=== PATIENT | female | born 1945 | race Caucasian/White ===

== ENCOUNTER 2019-05-05 13:06 | Inpatient (IN) ==
[2019-05-05] MEDS ORDERED: DUONEB (A & A) INH ONE (14:04)
[2019-05-05 14:38] LABS: BASO# 0.01 X1000 (0.0-0.2); BASO% 0.1 % (0.0-0.8); EOS# 0.01 X1000 (0.0-0.7); EOS% 0.1 % (0.0-10.0); HEMATOCRIT 36.3 % (37.0-47.0); IMM GRAN# 0.04 X1000 (0.0-0.04); IMM GRAN% 0.3 % (0.0-0.5); LYMPH# 1.79 X1000 (1.2-3.4); LYMPH% 11.8 % (20.5-51.1); MCH 31.3 PG (27-31); MCHC 33.1 g/dL (33-37); MCV 94.8 FL (81-99); MONO# 1.65 X1000 (0.11-0.59); MONO% 10.9 % (1.7-9.3); MPV 10.2 FL (7.4-10.4); NEUT% 76.8 % (42.2-75.2); PLT 187 X1000 (130-400); RBC 3.83 XMIL (4.2-5.4); RDW 13.3 % (11.5-14.5)
--- NOTE | 2019-05-05 14:50 | Diag Imaging Result Doc PS360 ---
EXAM: CT HEAD W/O CONTRAST HISTORY: difficulty swallowing TECHNIQUE: CT head without contrast COMPARISON: None. FINDINGS: No parenchymal hemorrhage. No epidural or subdural hematoma. No subarachnoid hemorrhage. There are chronic microvascular ischemic changes. No mass identified on this noncontrasted exam. No hydrocephalus. No sinus opacification. IMPRESSION: 1.No hemorrhage 2.Chronic microvascular ischemic changes This exam was performed using automated exposure control, adjustment of mA or kV according to patient size, and/or use of iterative reconstruction technique. Electronically signed by Kevin Hudson 05/05/2019 2:47 PM
[2019-05-05 14:56] LABS: AGAP 10; ALBUMIN 3.9 g/dL (3.5-5.0); ALKALINE PHOSPHATASE 65 U/L (32-104); BUN 22 mg/dL (8-22); CALCIUM 9.4 mg/dL (8.8-10.2); CHLORIDE 107 mmol/L (98-107); COSMO 289; CREATININE 0.9 mg/dL (0.5-0.9); ESTIMATED GFR > 60; GLUCOSE 119 mg/dL (70-104); GOT 313 U/L (10-30); GPT 90 U/L (10-36); POTASSIUM 3.9 mmol/L (3.5-5.1); SODIUM 143 mmol/L (136-145); TCO2 27 mmol/L (25-35); TOTAL PROTEIN 6.7 g/dL (6.3-8.3)
--- NOTE | 2019-05-05 14:57 | Diag Imaging Result Doc PS360 ---
EXAM: CHEST-2 VIEWS HISTORY: short of breath TECHNIQUE: Chest two views COMPARISON: 11/21/2015 FINDINGS: The lungs are hyperexpanded. The heart is not enlarged. The vessels are not distended. There are no infiltrates. No pleural effusions. There has been surgery to the lower neck. IMPRESSION: Likely emphysema. Electronically signed by Kevin Hudson 05/05/2019 2:55 PM
[2019-05-05] MEDS ORDERED: ROCEPHIN 1 GM in NS 50 ML IV ONE (15:48)
[2019-05-05] MEDS ORDERED: ZITHROMAX 500 MG/NS 500 MG/250 ML IVPB IV ONE (15:48)
[2019-05-05] MEDS ORDERED: ZOFRAN IV PRN ×2 (16:13→16:15)
[2019-05-05] MEDS ORDERED: TYLENOL PO PRN ×2 (16:13→16:15)
[2019-05-05] MEDS ORDERED: DUONEB (A & A) INH PRN (16:13)
[2019-05-05] MEDS: CLINDAMYCIN 600 MG/D5W 600 MG/50 ML IVPB IV SCH ×2 (16:37→23:08)
[2019-05-05] MEDS: DUONEB (A & A) INH SCH ×2 (20:15→23:55)
[2019-05-05] MEDS: XANAX PO SCH (22:39)
--- NOTE | 2019-05-06 01:48 | HISTORY AND PHYSICAL ---
CHIEF COMPLAINT: Coughing after drinking HISTORY OF PRESENT ILLNESS: The patient is a 73-year-old female who notes that she was brought to the emergency department. She notes that while she was drinking liquids, she felt as though it got stuck. She started coughing and has been coughing for the past 2 weeks. Thought this would improve and it did not, therefore, she was brought to the ER. ALLERGIES: Ibuprofen, morphine, NSAIDs. MEDICATIONS: Neurontin 600. REVIEW OF SYSTEMS: Difficult to obtain as Ms. Pearl does have some dementia. She notes that she is more worried about the fact that she cannot walk, but then remarks this has been going on for 6 or 8 months. She has tried to participate in physical therapy and it was too difficult. Denies any fevers, chills, cough, congestion. States she has been tired and fatigued. Denies any dysuria, frequency, urgency, hesitancy, polyuria, or polydipsia. Denies skin rashes, weight loss, weight gain. FAMILY HISTORY: Noncontributory. SOCIAL HISTORY: Patient does not smoke or drink. She lives in assisted living. PHYSICAL EXAMINATION: VITAL SIGNS: Temp 98 degrees, pulse 75, respiratory rate 18, BP 114/65, sat 95% on room air. GENERAL: Patient is awake, currently in no distress. HEENT: Normocephalic. NECK: Supple. CARDIOVASCULAR: Regular rate. No murmurs. CHEST: Clear, nonlabored. ABDOMEN: Soft. EXTREMITIES: Moves all extremities. ASSESSMENT: 1. Cough. 2. Probable aspiration. 3. Dementia. 4. Hyperlipidemia. 5. Hypertension. PLAN: We will continue patient in the hospital. Will change to full liquids, have her sit up for 30 minutes to an hour after she eats and will re-evaluate. May need an EGD versus nuclear scan. cc: Dom Syed MD
[2019-05-06] MEDS: CLINDAMYCIN 600 MG/D5W 600 MG/50 ML IVPB IV SCH ×3 (02:05→16:41)
[2019-05-06] MEDS: DUONEB (A & A) INH SCH ×5 (02:58→20:03)
[2019-05-06] MEDS ORDERED: TYLENOL PO PRN (06:50)
[2019-05-06] MEDS ORDERED: ZOFRAN IV PRN (06:50)
[2019-05-06] MEDS ORDERED: DUONEB (A & A) INH PRN (06:50)
[2019-05-06 08:08] LABS: HEMATOCRIT 34.2 % (37.0-47.0); HEMOGLOBIN 10.9 g/dL (12.0-16.0); MCH 30.5 PG (27-31); MCHC 31.9 g/dL (33-37); MCV 95.8 FL (81-99); MPV 10.9 FL (7.4-10.4); RBC 3.57 XMIL (4.2-5.4); RDW 13.3 % (11.5-14.5); WBC 11.31 X1000 (4.8-10.8)
[2019-05-06 08:21] LABS: AGAP 11; ALBUMIN 3.5 g/dL (3.5-5.0); ALKALINE PHOSPHATASE 69 U/L (32-104); BUN 18 mg/dL (8-22); CALCIUM 9.1 mg/dL (8.8-10.2); CHLORIDE 107 mmol/L (98-107); COSMO 288; CREATININE 0.6 mg/dL (0.5-0.9); ESTIMATED GFR > 60; GLUCOSE 113 mg/dL (70-104); GOT 294 U/L (10-30); GPT 96 U/L (10-36); POTASSIUM 4.1 mmol/L (3.5-5.1); SODIUM 143 mmol/L (136-145); TCO2 25 mmol/L (25-35); TOTAL PROTEIN 6.3 g/dL (6.3-8.3)
[2019-05-06] MEDS: SOLU-MEDROL IV SCH ×2 (09:53→16:08)
[2019-05-06] MEDS: CYMBALTA PO SCH ×2 (09:53→20:47)
[2019-05-06] MEDS: CULTURELLE PO SCH (09:53)
[2019-05-06] MEDS: FLONASE NAS SCH (09:53)
[2019-05-06] MEDS: PROTONIX PO SCH (09:53)
[2019-05-06] MEDS: ZYPREXA PO SCH ×2 (09:53→20:47)
[2019-05-06] MEDS: NEURONTIN PO SCH ×2 (09:53→20:46)
[2019-05-06] MEDS: MIRALAX PO SCH (09:54)
[2019-05-06 12:57] LABS: BILIRUBIN URINE NEGATIVE (NEGATIVE); BLOOD URINE 2+ (NEGATIVE); GLUCOSE URINE NEGATIVE (NEGATIVE); KETONE URINE TRACE mg/dL (NEGATIVE); LEUKOCYTES URINE 1+ (NEGATIVE); NITRITE URINE NEGATIVE (NEGATIVE); PROTEIN URINE TRACE mg/dL (NEGATIVE); UROBILINOGEN URINE NORMAL
[2019-05-06 12:58] LABS: CLARITY CLEAR (CLEAR); COLOR YELLOW
[2019-05-06 13:00] LABS: URINE BACTERIA 1+ /HFP; URINE CAST NONE SEEN /LPF; URINE CRYSTAL NONE SEEN /HPF; URINE EPITHELIAL CELLS <10 /HPF (<10); URINE RBC <10 /HPF (<10); URINE SMALL ROUND CELLS RENAL PRESENT; URINE SOURCE CLEAN CATCH; URINE WBC <10 /HPF (<10); URINE YEAST NONE SEEN /HPF
[2019-05-06] MEDS: NAMENDA PO SCH (13:08)
[2019-05-06] MEDS: ROCEPHIN 1 GM in NS 50 ML IV SCH (16:08)
--- NOTE | 2019-05-06 20:45 | PROGRESS NOTE ---
DATE: 05/06/2019 SUBJECTIVE: Patient notes that overall she is feeling a little bit better. She is still having lots of cough and congestion, lots of shortness of breath. The patient seems to be very concerned about her walking. She notes that she has not been able to walk due to her knee and foot pain. After this was discussed with her, it appears this has been going on for several months and not simply a few days. OBJECTIVE: Vital signs: Temperature 98.3, pulse 68, respiratory rate 18, BP 113/54. General: Patient is awake. She is in minimal respiratory distress. HEENT: Normocephalic. Neck: Supple. Cardiovascular: Regular rate. Chest: Clear. Abdomen: Soft. Extremities: Moves all extremities. ASSESSMENT: 1. Chronic obstructive pulmonary disease with exacerbation. She has minimal wheezing that is alleviated pretty easily with breathing treatments. 2. Questionable aspiration. Swallowing study is pending. 3. Dementia, certainly worsening her overall symptoms and abilities to obtain a history. 4. Hyperlipidemia. 5. Hypertension. PLAN: We will continue patient in the hospital today on antibiotics. We will get a swallowing evaluation. If this is normal, we will attempt to adjust her antibiotics over the next day or two. cc: Dom Syed MD
[2019-05-06] MEDS: ARICEPT PO SCH (20:47)
[2019-05-06] MEDS: PATIENT'S OWN MED PO SCH (20:47)
[2019-05-06] MEDS: XANAX PO SCH (20:47)
[2019-05-07] MEDS: DUONEB (A & A) INH SCH ×7 (00:38→23:06)
[2019-05-07] MEDS: PROTONIX PO SCH (06:20)
[2019-05-07] MEDS: MIRALAX PO SCH (09:43)
[2019-05-07] MEDS: FLONASE NAS SCH (09:43)
[2019-05-07] MEDS: CLINDAMYCIN 600 MG/D5W 600 MG/50 ML IVPB IV SCH ×3 (09:44→17:47)
[2019-05-07] MEDS: CYMBALTA PO SCH ×3 (09:45→22:02)
[2019-05-07] MEDS: NAMENDA PO SCH (09:45)
[2019-05-07] MEDS: NEURONTIN PO SCH ×2 (09:45→21:45)
[2019-05-07] MEDS: CULTURELLE PO SCH (09:45)
[2019-05-07] MEDS: ZYPREXA PO SCH ×3 (09:45→22:03)
[2019-05-07] MEDS: PATIENT'S OWN MED PO SCH ×2 (11:38→21:45)
[2019-05-07] MEDS: SOLU-MEDROL IV SCH ×3 (11:40→16:22)
[2019-05-07] MEDS: ROCEPHIN 1 GM in NS 50 ML IV SCH (16:22)
--- NOTE | 2019-05-07 19:56 | PROGRESS NOTE ---
DATE: 05/07/2019 SUBJECTIVE: The patient notes that she cannot move her legs. States her breathing is better, but then is confused why she is in the hospital and where she actually is. PHYSICAL EXAMINATION: Temperature 98.3 degrees, pulse 60, respiratory rate 18, BP 113/54.General: The patient is awake. She is in mild respiratory distress. HEENT: Normocephalic. Neck supple. CV: Regular rate. Chest: Positive mild wheezing diffusely throughout. Extremities: Moves all extremities. Neurologic: No focal changes. The patient is noted to have both of her legs bent and propped up at the knee. ASSESSMENT: 1. Dementia. Unfortunately her dementia is making her overall history quite difficult. 2. Bilateral leg pain. This is likely secondary to chronic arthritis. 3. Hypertension. 4. Hyperlipidemia. 5. Chronic obstructive pulmonary disease with mild exacerbation. 6. Questionable aspiration. She did pass a swallow study without any difficulty. Most likely she simply got choked when she was drinking liquids earlier. PLAN: We will continue her on antibiotic, breathing treatments and oxygen. She does have elevated liver enzymes of undetermined origin. We are continuing to evaluate this. Hopefully she can discharge to rehab over the next day or 2. cc: Dom Syed MD
[2019-05-07] MEDS: XANAX PO SCH ×2 (21:45→22:02)
[2019-05-07] MEDS: ARICEPT PO SCH ×2 (21:45→22:02)
[2019-05-08] MEDS: CLINDAMYCIN 600 MG/D5W 600 MG/50 ML IVPB IV SCH (00:05)
[2019-05-08] MEDS: SOLU-MEDROL IV SCH ×3 (00:05→21:42)
[2019-05-08] MEDS: DUONEB (A & A) INH SCH ×6 (03:38→23:03)
[2019-05-08] MEDS: PROTONIX PO SCH (06:10)
[2019-05-08] MEDS: FLONASE NAS SCH (09:25)
[2019-05-08] MEDS: MIRALAX PO SCH (09:26)
[2019-05-08] MEDS: ZYPREXA PO SCH ×2 (09:26→21:43)
[2019-05-08] MEDS: NEURONTIN PO SCH ×2 (09:26→21:42)
[2019-05-08] MEDS: NAMENDA PO SCH (09:26)
[2019-05-08] MEDS: CLEOCIN PO SCH ×3 (09:26→16:17)
[2019-05-08] MEDS: CULTURELLE PO SCH (09:26)
[2019-05-08] MEDS: PATIENT'S OWN MED PO SCH ×2 (09:27→21:43)
[2019-05-08] MEDS: CYMBALTA PO SCH ×2 (09:39→21:42)
[2019-05-08] MEDS: ROCEPHIN 1 GM in NS 50 ML IV SCH (15:46)
[2019-05-08 19:23] LABS: BILIRUBIN URINE NEGATIVE (NEGATIVE); BLOOD URINE NEGATIVE (NEGATIVE); CLARITY CLEAR (CLEAR); COLOR YELLOW; GLUCOSE URINE NEGATIVE (NEGATIVE); KETONE URINE NEGATIVE (NEGATIVE); LEUKOCYTES URINE NEGATIVE (NEGATIVE); NITRITE URINE NEGATIVE (NEGATIVE); PH URINE 6.5; PROTEIN URINE NEGATIVE (NEGATIVE); URINE SOURCE CATH; UROBILINOGEN URINE NORMAL
[2019-05-08 19:25] LABS: URINE BACTERIA 1+ /HFP; URINE CAST NONE SEEN /LPF; URINE CRYSTAL NONE SEEN /HPF; URINE EPITHELIAL CELLS <10 /HPF (<10); URINE RBC <10 /HPF (<10); URINE WBC <10 /HPF (<10); URINE YEAST NONE SEEN /HPF
--- NOTE | 2019-05-08 19:40 | PROGRESS NOTE ---
DATE: 05/08/2019 SUBJECTIVE: Patient overall notes that she is breathing easier. Still states she is having lower extremity pain and decreased movement. OBJECTIVE: Vital Signs: Temperature 97.5, pulse 67, respiratory rate 18, BP 104/53. General: Patient is awake, alert, currently in no respiratory distress. She is lying in bed. HEENT: Normocephalic. Neck: Supple. Cardiovascular: Regular rate. Chest: Clear, nonlabored. Abdomen: Soft, nondistended, although she does have tenderness over the suprapubic area. Extremities: Moves all extremities, although has generalized lower extremity weakness. ASSESSMENT: 1. Chronic obstructive pulmonary disease with exacerbation, improved. 2. Dementia. 3. Urinary retention. 4. Acute hepatitis of undetermined origin. 5. Hyperlipidemia. 6. Hypertension. PLAN: Continue to decrease Solu-Medrol. At this point, we are going to have to place a Frazier catheter as she is not able to urinate on her own. We will continue to follow her liver functions. Further orders as needed. cc: Dom Syed MD
--- NOTE | 2019-05-08 20:44 | Diag Imaging Result Doc PS360 ---
KUB ABDOMEN - 05/08/2019 INDICATION: CONSTIPATION, URINE RETENTION COMPARISON: None FINDINGS: There is a nonobstructive bowel gas pattern. No free air or abdominal calcifications. There is no constipation. There are laminectomy and fusion changes at L4-L5. IMPRESSION: No acute disease. Electronically signed by Jeffrey Massey 05/08/2019 8:41 PM
[2019-05-08] MEDS: ARICEPT PO SCH (21:42)
[2019-05-09] MEDS: CLEOCIN PO SCH ×4 (00:52→15:59)
[2019-05-09] MEDS: DUONEB (A & A) INH SCH ×6 (03:45→22:56)
[2019-05-09] MEDS: PROTONIX PO SCH (06:13)
--- NOTE | 2019-05-09 08:45 | EKG Report ---
Test Performed on : 05/09/2019 08:32:27 AM Test Reason : RHYTHM CHANGE Blood Pressure : / mmHG Vent. Rate : 084 BPM Atrial Rate : 084 BPM P-R Int : 106 ms QRS Dur : 090 ms QT Int : 370 ms P-R-T Axes : 062 007 -05 degrees QTc Int : 437 ms Sinus rhythm. with short ME Otherwise normal ECG When compared with ECG of 21-NOV-2015 12:16, Questionable change in QRS axis ST no longer depressed in Inferior leads Unconfirmed Result
[2019-05-09] MEDS: NAMENDA PO SCH (09:35)
[2019-05-09] MEDS: CYMBALTA PO SCH ×2 (09:35→20:40)
[2019-05-09] MEDS: CULTURELLE PO SCH (09:35)
[2019-05-09] MEDS: FLONASE NAS SCH (09:35)
[2019-05-09] MEDS: ZYPREXA PO SCH ×2 (09:35→20:40)
[2019-05-09] MEDS: NEURONTIN PO SCH ×2 (09:35→20:41)
[2019-05-09] MEDS: MIRALAX PO SCH (09:35)
[2019-05-09] MEDS: SOLU-MEDROL IV SCH ×2 (09:36→20:41)
[2019-05-09] MEDS: PATIENT'S OWN MED PO SCH ×2 (09:36→20:41)
[2019-05-09 10:10] LABS: HEMATOCRIT 35.3 % (37.0-47.0); HEMOGLOBIN 11.5 g/dL (12.0-16.0); MCH 31.2 PG (27-31); MCHC 32.6 g/dL (33-37); MCV 95.7 FL (81-99); MPV 9.8 FL (7.4-10.4); RBC 3.69 XMIL (4.2-5.4); RDW 13.4 % (11.5-14.5); WBC 14.92 X1000 (4.8-10.8)
[2019-05-09 10:49] LABS: AGAP 11; ALBUMIN 3.6 g/dL (3.5-5.0); ALKALINE PHOSPHATASE 62 U/L (32-104); BUN 23 mg/dL (8-22); CALCIUM 9.1 mg/dL (8.8-10.2); CHLORIDE 104 mmol/L (98-107); COSMO 290; CREATININE 0.5 mg/dL (0.5-0.9); ESTIMATED GFR > 60; GLUCOSE 148 mg/dL (70-104); GOT 71 U/L (10-30); GPT 81 U/L (10-36); POTASSIUM 4.6 mmol/L (3.5-5.1); SODIUM 142 mmol/L (136-145); TCO2 27 mmol/L (25-35); TOTAL PROTEIN 6.3 g/dL (6.3-8.3)
--- NOTE | 2019-05-09 12:48 | PROGRESS NOTE ---
DATE: 05/09/2019 SUBJECTIVE: Patient has no new complaints. Unfortunately, given her dementia, it is difficult to get answers to questions. Each question typically is answered with her back and legs have been hurting for months and makes it difficult for her to walk. This was the answer when asked if she was having any cough, congestion, fever and if she was having any urinary issues. PHYSICAL EXAMINATION: Vital signs: Temperature 98 degrees, pulse 80s, respiratory 20, blood pressure is stable. General: Patient is awake, alert. She is sitting up in the bed. She is in no current distress. HEENT: Normocephalic. Neck: Supple. Cardiovascular: Regular rate. Chest: Clear. No current wheezing. No crackles. Abdomen: Soft, nondistended. Extremities: Moves all extremities, although does have painful movement of her bilateral lower extremities. ASSESSMENT: 1. Chronic obstructive pulmonary disease with exacerbation, stable, improving. Continue to wean Solu-Medrol. 2. Bilateral lower extremity pain. 3. Urinary retention. We will continue Frazier catheter. 4. Hyperlipidemia. 5. Hypertension. PLAN: We will continue patient's current treatment. We will continue to follow. cc: Dom Syed MD
[2019-05-09] MEDS: ROCEPHIN 1 GM in NS 50 ML IV SCH (15:55)
[2019-05-09] MEDS: ARICEPT PO SCH (20:41)
[2019-05-09] MEDS: XANAX PO PRN (20:48)
[2019-05-10] MEDS: CLEOCIN PO SCH ×3 (00:03→16:27)
[2019-05-10] MEDS: DUONEB (A & A) INH SCH ×6 (03:13→23:09)
[2019-05-10] MEDS: PROTONIX PO SCH (06:08)
[2019-05-10] MEDS: NAMENDA PO SCH (09:39)
[2019-05-10] MEDS: FLONASE NAS SCH (09:39)
[2019-05-10] MEDS: MIRALAX PO SCH (09:39)
[2019-05-10] MEDS: SOLU-MEDROL IV SCH (09:40)
[2019-05-10] MEDS: CYMBALTA PO SCH ×2 (09:40→20:30)
[2019-05-10] MEDS: ZYPREXA PO SCH ×2 (09:40→20:30)
[2019-05-10] MEDS: CULTURELLE PO SCH (09:40)
[2019-05-10] MEDS: PATIENT'S OWN MED PO SCH ×2 (09:40→23:04)
[2019-05-10] MEDS: NEURONTIN PO SCH ×2 (09:40→20:30)
[2019-05-10] MEDS: FLOMAX PO SCH ×2 (10:27→20:30)
--- NOTE | 2019-05-10 13:27 | PROGRESS NOTE ---
DATE: 05/10/2019 SUBJECTIVE: Patient without any new complaints. PHYSICAL EXAMINATION: Vital Signs: Reviewed. She is afebrile. Pulse 60s, respiratory 20, BP 111/66. General: Patient is in no current respiratory distress. HEENT: Normocephalic. Neck: Supple. Cardiovascular: Regular rate. No murmurs. Chest: Much improved air movement. No wheezing. No crackles. Abdomen: Soft nondistended nontender. Extremities: Does move all extremities although does have generalized weakness, more so in her lower extremities and upper. ASSESSMENT: 1. Pneumonia continues to improve. 2. Chronic obstructive pulmonary disease with exacerbation. We will continue to wean her Solu- Medrol. 3. Generalized weakness with adult failure to thrive. 4. Dementia. 5. Hyperlipidemia. 6. Hepatitis. Both her AST, ALT have improved since she has been in the hospital. Continue to follow this. PLAN: We will continue patient in the hospital. She does have some urinary retention. She currently has an indwelling Frazier. Hopefully, she can transition to rehab over the next 2 or 3 days. We will attempt to remove Frazier catheter. cc: Dom Syed MD
[2019-05-10] MEDS: ROCEPHIN 1 GM in NS 50 ML IV SCH (16:27)
[2019-05-10] MEDS: ARICEPT PO SCH (20:30)
[2019-05-11] MEDS: CLEOCIN PO SCH ×3 (00:07→16:37)
[2019-05-11] MEDS: DUONEB (A & A) INH SCH ×6 (02:56→23:50)
[2019-05-11 05:52] LABS: HEMOGLOBIN 10.7 g/dL (12.0-16.0); MCH 30.5 PG (27-31); MCHC 31.5 g/dL (33-37); MCV 96.9 FL (81-99); MPV 9.9 FL (7.4-10.4); RBC 3.51 XMIL (4.2-5.4); RDW 13.2 % (11.5-14.5); WBC 11.66 X1000 (4.8-10.8)
[2019-05-11] MEDS: PROTONIX PO SCH (06:08)
[2019-05-11 06:10] LABS: AGAP 8; ALBUMIN 3.2 g/dL (3.5-5.0); ALKALINE PHOSPHATASE 54 U/L (32-104); BUN 18 mg/dL (8-22); CALCIUM 8.8 mg/dL (8.8-10.2); CHLORIDE 103 mmol/L (98-107); COSMO 282; CREATININE 0.5 mg/dL (0.5-0.9); ESTIMATED GFR > 60; GLUCOSE 108 mg/dL (70-104); GOT 32 U/L (10-30); GPT 58 U/L (10-36); MAGNESIUM 2.2 mg/dL (1.5-2.7); POTASSIUM 4.6 mmol/L (3.5-5.1); SODIUM 140 mmol/L (136-145); TCO2 29 mmol/L (25-35); TOTAL PROTEIN 5.5 g/dL (6.3-8.3)
--- NOTE | 2019-05-11 08:22 | Diag Imaging Result Doc PS360 ---
EXAM: CHEST-PORTABLE HISTORY: unable to go to radiology TECHNIQUE: Single view of the chest was performed portably. COMPARISON: 05/05/2019 FINDINGS: The cardiomediastinal silhouette is within normal limits. Patient is rotated to the left. There is increased opacity in left perihilar region and left lower lobe. Probable small left pleural effusion. Right lung grossly clear. There are marked degenerative changes about the bilateral shoulders. There is screw plate fixation device lower cervical spine. IMPRESSION: Left perihilar and lower lobe opacity. Left effusion. Follow-up recommended. Electronically signed by Emily Montenegro 05/11/2019 8:20 AM
[2019-05-11] MEDS: MIRALAX PO SCH (10:19)
[2019-05-11] MEDS: FLONASE NAS SCH (10:19)
[2019-05-11] MEDS: NEURONTIN PO SCH ×2 (10:19→20:57)
[2019-05-11] MEDS: CULTURELLE PO SCH (10:20)
[2019-05-11] MEDS: FLOMAX PO SCH ×2 (10:20→20:57)
[2019-05-11] MEDS: NAMENDA PO SCH (10:20)
[2019-05-11] MEDS: ZYPREXA PO SCH ×2 (10:20→20:57)
[2019-05-11] MEDS: SOLU-MEDROL IV SCH (10:20)
[2019-05-11] MEDS: CYMBALTA PO SCH ×2 (10:20→20:56)
[2019-05-11] MEDS: PATIENT'S OWN MED PO SCH ×2 (10:21→20:57)
--- NOTE | 2019-05-11 14:22 | PROGRESS NOTE ---
DATE: 05/11/2019 SUBJECTIVE: The patient reports feeling a little bit short of breath. Denies any fever or chills. She reports feeling very weak and not able to walk around or sit in the chair. OBJECTIVE: Vital Signs: Temperature 98.5 degrees, heart rate 64, respiratory rate 18, blood pressure 110/62, O2 saturation 94% on 3 L nasal cannula. General Examination: This is a chronically ill-appearing, 73-year-old, female lying in bed, in no acute distress. Cardiovascular Examination: S1 and S2 heard. No murmurs, gallops, or rubs. Regular rate and rhythm. Respiratory Examination: There is mild wheezing noted in both pulmonary bases. Patient is not using any accessory muscles or having work of breathing. Abdomen: Soft. Nontender to palpation. Bowel sounds present. No organomegaly. Extremities: No clubbing, cyanosis, or edema. Peripheral pulses present in both legs. Neurological Examination: The patient is alert and oriented x3. Moves 4 extremities. Laboratory Data: Reviewed. ASSESSMENT AND PLAN: 1. Left lower lobe pneumonia. The patient is on antibiotics; in this case, on ceftriaxone and Levaquin. White cell count is getting definitely better so we are going to continue with the same management, even though this patient is still complaining of mild shortness of breath. 2. Chronic obstructive pulmonary disease exacerbation secondary to condition #1. We will continue with breathing treatments; in this case, DuoNeb every 4 hours as scheduled and Solu- Medrol. 3. Generalized weakness. Patient is working with physical therapy. 4. Adult failure to thrive. Aware. We will continue with the same management. 5. Acute hepatitis. AST and ALT continue to improve. 6. Disposition. I think this patient's pneumonia is getting better. I think in the next couple days, she should be ready to go to a rehab facility. cc: Danny Constantino MD
[2019-05-11] MEDS: ROCEPHIN 1 GM in NS 50 ML IV SCH (16:37)
[2019-05-11] MEDS: ARICEPT PO SCH (20:57)
[2019-05-11] MEDS: XANAX PO PRN (20:57)
[2019-05-12] MEDS: CLEOCIN PO SCH ×3 (01:54→17:16)
[2019-05-12] MEDS: DUONEB (A & A) INH SCH ×6 (03:19→23:14)
[2019-05-12] MEDS: PROTONIX PO SCH (06:00)
[2019-05-12] MEDS: SOLU-MEDROL IV SCH (09:06)
[2019-05-12] MEDS: ZYPREXA PO SCH ×2 (09:06→21:07)
[2019-05-12] MEDS: NEURONTIN PO SCH ×2 (09:06→21:07)
[2019-05-12] MEDS: FLOMAX PO SCH ×2 (09:06→21:06)
[2019-05-12] MEDS: CULTURELLE PO SCH (09:06)
[2019-05-12] MEDS: NAMENDA PO SCH (09:06)
[2019-05-12] MEDS: MIRALAX PO SCH (09:06)
[2019-05-12] MEDS: CYMBALTA PO SCH ×2 (09:06→21:06)
[2019-05-12] MEDS: PATIENT'S OWN MED PO SCH ×2 (09:07→21:07)
[2019-05-12] MEDS: FLONASE NAS SCH (09:07)
--- NOTE | 2019-05-12 10:54 | DISCHARGE SUMMARY ---
ADMISSION DATE: 05/05/2019 DISCHARGE DATE: 05/12/2019 PRIMARY CARE PHYSICIAN: Listed as none. ADMISSION DIAGNOSES: 1. Cough. 2. Probable aspiration. 3. Dementia. 4. Hyperlipidemia. 5. Hypertension. DISCHARGE DIAGNOSES: 1. Left lower lobe pneumonia, most likely aspiration. 2. Chronic obstructive pulmonary disease exacerbation secondary to #1. 3. Generalized weakness. 4. Adult failure to thrive. 5. Acute hepatitis, improved. SUMMARY OF FINDINGS: This is a 73-year-old female who presents to the emergency department stating that she was drinking liquids and felt as though it got stuck and started coughing, and had been coughing for the past couple of weeks and it did not improve. We did a chest x-ray that showed likely emphysema on arrival. We did an abdomen x-ray on 05/08/2019 that showed no acute disease. We repeated her chest x-ray on 05/11/2019 that showed a left perihilar and lower lobe opacity and left effusion. She was admitted. Placed on IV antibiotics, IV steroids that were weaned as she improved, DuoNeb q.4 hours routinely and q.2 p.r.n. Her O2 saturation has been in the 92 to 95 on 3 L via nasal cannula, and she will require O2 at discharge at her rehab. Her white blood cell count is down from 15.2 to 11.66. Her AST and ALT on arrival were 313 and 90, now down to 32 and 58, and it is felt that she can safely be discharged to rehab today. DISCHARGE MEDICATIONS: Include DuoNeb q.4 hours p.r.n., Xanax 1 mg p.o. at bedtime, celecoxib 50 mg p.o. b.i.d., donepezil 10 mg p.o. at bedtime, duloxetine 20 mg p.o. b.i.d., Flonase 1 inhalation daily, Neurontin 600 mg p.o. b.i.d., probiotic 1 p.o. daily, Namenda 5 mg p.o. daily, olanzapine 10 mg p.o. b.i.d., pantoprazole 40 mg p.o. daily, MiraLAX 17 g p.o. daily, tamsulosin 0.4 mg p.o. b.i.d., Tylenol 500 mg p.o. t.i.d., Omnicef 300 mg p.o. b.i.d. (#14, no refills, for 7 days), Cleocin 300 mg p.o. q.6 hours (#28, no refill, x7 days), Anusol-HC cream 1 topically t.i.d., menthol camphor topically as directed p.r.n., Medrol Dosepak to take as directed. Again, she will require O2 at 3 L via nasal cannula and may wean as she continues to improve during her rehab stay. TIME SPENT: This is a 35 minute discharge. Dictated by AV Mcknight for Danny Constantino MD Addendum: Patient seen and examined by myself. Agree with AV note. It reflects my assessment and plan. Patient is being discharged in stable condition to home. cc: AV Mcknight MD [facility]
[2019-05-12] MEDS: ROCEPHIN 1 GM in NS 50 ML IV SCH (17:16)
[2019-05-12] MEDS: ARICEPT PO SCH (21:07)
[2019-05-12] MEDS: XANAX PO PRN (21:13)
[2019-05-13] MEDS: CLEOCIN PO SCH (02:13)
[2019-05-13] MEDS: DUONEB (A & A) INH SCH ×2 (03:34→07:50)
[2019-05-13] MEDS: PROTONIX PO SCH (06:00)
[2019-05-13 08:24] VITALS: BP 112/65
--- NOTE | 2019-05-13 19:21 | PROVIDER DOCUMENTATION ---
This chart was entered by Meagan Mcfarlane Scribe, acting as scribe for Kd Wilkerson MD. HPI-Respiratory General - General Stated Complaint: ASPIRATION Time Seen by Provider: 05/05/19 13:55 Source: patient, EMS Allergies/Adverse Reactions: Patient Allergies Allergy/AdvReac Type Severity Reaction Status Date / Time ibuprofen AdvReac go crazy Verified 01/23/16 09:17 morphine AdvReac Unknown Verified 01/23/16 09:17 NSAIDS (Non-Steroidal AdvReac go crazy Verified 01/23/16 09:17 Anti-Inflamma Home Medications: Home Medication List Medication Instructions Recorded Confirmed Last Taken Type Gabapentin [Neurontin] 600 mg PO BID 11/21/15 05/05/19 05/05/19 12:00 History Acetaminophen 500 mg PO TID 05/05/19 05/05/19 05/05/19 12:00 History Celecoxib 50 mg PO BID 05/05/19 05/05/19 05/05/19 08:00 History Donepezil [Aricept] 10 mg PO QHS 05/05/19 05/05/19 05/04/19 20:00 History Duloxetine [Cymbalta] 20 mg PO BID 05/05/19 05/05/19 05/05/19 08:00 History Fluticasone 50 Mcg Nasal Argillite 50 mg IN DAILY 05/05/19 05/05/19 05/05/19 08:00 History [Flonase] Hydrocortisone 2.5% Cream 1 gm TOP TID 05/05/19 05/05/19 Unknown History [Anusol-Hc Cream] L.acidoph,Paracasei, B.lactis 1 ea PO DAILY 05/05/19 05/05/19 Unknown History [Probiotic] Memantine [Namenda] 5 mg PO DAILY 05/05/19 05/05/19 05/05/19 08:00 History Menthol/Camphor [Men-Phor 59 ml TOPICAL DIRECTED PRN 05/05/19 05/05/19 Unknown History Anti-Itch Lotion] Olanzapine 10 mg PO BID 05/05/19 05/05/19 05/05/19 08:00 History Pantoprazole [Protonix] 40 mg PO DAILY@0700 05/05/19 05/05/19 05/05/19 08:00 History Polyethylene Glycol 3350 [Miralax] 17 gm PO DAILY 05/05/19 05/05/19 05/04/19 08:00 History Albuterol 2.5MG/Ipratrop 0.5MG 3 ml INH Q4H PRN PRN #60 neb 05/12/19 Unknown Rx [Duoneb (A & A)] Alprazolam 1 mg PO QHS PRN #30 tab 05/12/19 Unknown Rx CefDINIR [Omnicef] 300 mg PO BID #14 cap 05/12/19 Unknown Rx Clindamycin [Cleocin] 300 mg PO Q6HR #28 cap 05/12/19 Unknown Rx Methylprednisolone [Medrol Dosepak] 4 mg PO DIRECTED #1 pkg 05/12/19 Unknown Rx Tamsulosin [Flomax] 0.4 mg PO BID #60 cap 05/12/19 Unknown Rx - History of Present Illness-Resp Nature of Presenting Problem: 73yof presents to ED by EMS cc she got strangled on water that had her Miralax in it 2 nights ago and since then she has SOB, cough, feels something is stuck in her throat and this morning unable to ambulate. Pt lives in an assisted living facility. Vishal is at bedside and reports pt just finished ABT for UTI. Pt has hx of Psychosis, dementia, hyperlipidemia and HTN. Pt is A&Ox3. Quality of Pain: reports: indigestion Severity in ED: reports: mild Onset/Duration: reports: 2 days ago Timing: reports: still present, changing over time Context: reports: aspiration/choking Cough Quality/Degree: reports: mild Episode Frequency: no prior episodes Current Respiratory Medication Therapy: Initiated see nurses note Modifying Factors: worse with: coughing, other (eating/drinking) Associated Symptoms: reports: cough, shortness of breath Similar Symptoms Previously?: No Recently seen or treated by another doctor?: No Review of Systems - Adult - REVIEW OF SYSTEMS - ADULT Constitutional: reports: see HPI, fatique. denies: chills, fever Eyes: reports: no symptoms reported Ears, Nose, Mouth & Throat: reports: no symptoms reported Cardiovascular: reports: no symptoms reported Respiratory: reports: see HPI, cough, shortness of breath. denies: excessive sputum production Gastrointestinal: reports: no symptoms reported Genitourinary: reports: no symptoms reported Musculoskeletal: reports: see HPI, back pain, other (difficulty ambulating). denies: joint swelling Integumentary: reports: no symptoms reported Neurological: reports: no symptoms reported Psychiatric: reports: no symptoms reported Endocrine: reports: no symptoms reported Hematologic/Lymphatic: reports: no symptoms reported Allergic/Immunologic: reports: no symptoms reported All Other Systems: Reviewed and Negative Past History - Adult - PAST MEDICAL HISTORY-ADULT Review of Records: reports: Nursing Assessment Review, Medications Reviewed, Social history reviewed & non-contributory. Major Childhood Illnesses: reports: denies history Cardiovascular: reports: denies history Respiratory: reports: denies history Gastrointestinal: reports: denies history Obstetrical/Gynecological: reports: denies history Genitourinary: reports: denies history Musculoskeletal: reports: denies history Neurological: reports: denies history Endocrine/Immune: reports: denies history Other Conditions: reports: denies history - IMMUNIZATION STATUS Childhood Immunizations: See Nurse Assessment Flu Vaccine: See Nurse Assessment - FAMILY HISTORY Family History: reviewed, not pertinent - SOCIAL HISTORY Smoking: denies Physical Exam-General - PHYSICAL EXAM-ADULT Initial Vital Signs Reviewed: Yes - CONSTITUTIONAL General Appearance: appears well, alert, no apparent distress. negative: anxious, combative - EYES Eyes: PERRL/EOMI, pink conjunctivae. negative: meningismus, pale conjunctivae, photophobia - HEAD, EARS, NOSE, MOUTH & THROAT HENMT: normocephalic/atraumatic, moist mucous membranes, normal ENT inspection. negative: angioedema, dental decay, hearing deficit - NECK Neck: non-tender, full range of motion, supple, normal inspection. negative: Brudzinski's sign, carotid bruit, C-spine tenderness - RESPIRATORY Respiratory: chest non-tender, normal breath sounds, no pleuratic chest pain, no respiratory distress, no accessory muscle use, rhonchi (diffuse). negative: lungs clear, crackles, rales, stridor, wheezing - CARDIOVASCULAR Cardiovascular: normal peripheral pulses, regular rate, rhythm, no edema, no gallop, no JVD, no murmur. negative: bradycardia, tachycardia - GASTROINTESTINAL (ABDOMEN) Abdominal Exam: normal bowel sounds, non tender, soft. negative: distended, guarding, rigid, rebound, tenderness - LYMPHATIC Lymphatic: no adenopathy. negative: enlargement, striations, streaking - MUSCULOSKELETAL Back Exam: normal inspection, no CVA tenderness. negative: swelling Extremity: normal range of motion, non-tender, normal inspection, no pedal edema , no calf tenderness, normal capillary refill, pelvis stable. negative: deformity, erythema - SKIN Integumentary: normal color, normal turgor, warm/dry. negative: cyanosis, diaphoresis, erythema, jaundice - NEUROLOGIC Neurologic: cloth bleaching range tender II-XII nml as tested, grossly normal, no motor/sensory deficits. negative: facial droop, focal weakness - PSYCHIATRIC Psych/Mental Status: normal mood/affect, normal thought content, normal thought process, oriented x 3. negative: disoriented x 3, anxious, disheveled, depressed affect Progress - PLAN OF CARE/RESULTS Progress/Plan/Lab Results: Orders Category Date Time Status Admit - [facility] Routine AdmDCTranf 05/05/19 16:11 Active Activity - Up with Assistance ORDERED Care 05/05/19 16:11 Active Apply Mechanical Device [QM] ORDERED Care 05/05/19 16:11 Active Currently Rec Mechanical Proph [QM] ROUTINE Care 05/05/19 16:11 Completed DVT/PE Risk Assess/Protocol [QM] ORDERED Care 05/05/19 16:11 Completed Intake and Output-Strict ORDERED Care 05/05/19 16:11 Active Saline Loc DIRECTED Care 05/05/19 16:11 Completed Turn, Cough and Deep Breathe Q4HR.AWAKE Care 05/05/19 16:11 Active Vital Signs Order Q 8-HR ASSESS Care 05/05/19 16:11 Active Z-Document. for Tele Applied ORDERED Care 05/05/19 16:11 Completed Regular Diet Diet 05/05/19 16:12 Completed CHEST-2 VIEWS [RAD] Stat Exams 05/05/19 14:[address] HEAD W/O CONTRAST [CT] Stat Exams 05/05/19 14:04 Completed CBC WITH ELECTRONIC DIFF [HEME] Stat Lab 05/05/19 14:30 Completed COMPREHENSIVE METABOLIC PANEL [CHEM] Stat Lab 05/05/19 14:30 Completed Acetaminophen [Tylenol] Med 05/05/19 16:13 Discontinued 650 mg PO Q6H PRN PRN Albuterol 2.5MG/Ipratrop 0.5MG [Duoneb (A & A)] Med 05/05/19 14:04 Disc ontinued 3 ml INH NOW ONE Albuterol 2.5MG/Ipratrop 0.5MG [Duoneb (A & A)] Med 05/05/19 16:13 Discontinued 3 ml INH Q2H PRN PRN Albuterol 2.5MG/Ipratrop 0.5MG [Duoneb (A & A)] Med 05/05/19 19:30 Discontinued 3 ml INH RTQ4H Azithromycin 500 mg/Ns [Zithromax 500 mg/Ns] Med 05/05/19 15:48 Discontinued 500 mg in 250 ml IV NOW CefTRIAXONE [Rocephin] 1 gm Med 05/05/19 15:48 Discontinued 0.9% Sodium Chloride Inj [Ns] 50 ml IV NOW Clindamycin 600 mg/D5w Med 05/05/19 16:15 Discontinued 600 mg in 50 ml IV Q8H Ondansetron [Zofran] Med 05/05/19 16:13 Discontinued 4 mg IV Q4-6H PRN PRN Aerosol Treatments Routine Ot 05/05/19 14:04 Completed Aerosol Treatments Routine [facility] 05/05/19 16:13 Completed Aerosol Treatments Stat [facility] 05/05/19 14:04 Completed Aerosol Treatments Stat Ot 05/05/19 16:13 Completed Incentive Spirometer Q4HR.AWAKE [facility] 05/05/19 17:00 Completed Incentive Spirometer Q4HR.AWAKE [facility] 05/05/19 21:00 Completed Incentive Spirometer Q4HR.AWAKE [facility] 05/06/19 01:00 Completed Incentive Spirometer Q4HR.AWAKE Ot 05/06/19 05:00 Completed Incentive Spirometer Q4HR.AWAKE [facility] 05/06/19 09:00 Completed Incentive Spirometer Q4HR.AWAKE [facility] 05/06/19 13:00 Completed Oxygen Device Routine [facility] 05/05/19 16:11 Completed Peak Flow BID [facility] 05/05/19 21:00 Completed Peak Flow BID [facility] 05/06/19 09:00 Completed Telemetry [OM.EQ] Routine [facility] 05/05/19 16:11 Active Transfer/Admit Order [TRANSFER] Routine Transfer 05/05/19 16:15 Completed Result Diagrams: 05/11/19 05:18 05/11/19 05:18 - XRAY 1 XRAY: Bilateral XRAY Study: Chest Impression: See EMR Report (IMPRESSION: Likely emphysema. Electronically signed by Kevin Hudson 05/05/2019 2:55 PM) - CT/MRI 1 CT Study: Head Impression: See EMR Report (IMPRESSION: 1.No hemorrhage 2.Chronic microvascular ischemic changes This exam was performed using automated exposure control, adjustment of mA or kV according to patient size, and/or use of iterative reconstruction technique. Electronically signed by Kevin Hudson 05/05/2019 2:47 PM) - CONSULTS/PCP/HOSPITALIST Notification #1 *Consult/PCP/Hospitalist*: Dr. Galarza Time Discussed: 15:35 Consult Disposition: Will see in ED Departure - Departure Date of Disposition Decision: 05/05/19 Time of Disposition Decision: 16:00 DIAGNOSIS: Cough Aspiration into airway Qualifiers: Encounter type: initial encounter Qualified Code(s): T17.908A - Unspecified foreign body in respiratory tract, part unspecified causing other injury, initial encounter Disposition: ADMITTED INPATIENT 09 Certified Medical Emergency: Emergent Condition: Stable - Critical Care Note This patient required my direct & personal management of CC.: No Attestation - Physician/ SVEN Attestation Patient care was provided by Advanced Practice Provider:: No The physician spent face to face time with patient:: Yes Advanced Practice Provider documentation review:: Supervising physician onsite and consulted in the evaluation and care of this patient. The physician did have a face to face encounter with the patient. This chart was documented by the indicated scribe, (Meagan Mcfarlane Scribe) and accurately reflects the services I performed and decisions made by me, Kd Wilkerson MD, as attested by the provider's signature.
== END 2019-05-13 09:52 | DRG 178 ==
LOC: P.ED 13:06 → P.MEDSURG 16:54 → SUATTDRO 16:54
PROVIDERS: ATTEND Internal Medicine
CPT/HCPCS: 70450; 71010; 71020; 71045; 71046; 74000; 74018; 80053; 81001; 82948; 83735; 85025; 85027; 87088; 92610; 93005; 94640; 94761; 96365; 96375; 97163; 97530; 99285; A9270; J0456; J0696; J2920; J2930; XXXXX